=== PATIENT | female | born 1940 | race Caucasian/White ===

== ENCOUNTER 2016-08-21 13:40 | Emergency (ER) | payer MEDICARE, MEDICAID ==
[~2016-08-21 13:40] MED LIST: ALTACE2.5 MG PO; ANBESOL TP; CALTRATE-600 W600 MG PO; CLARITIN DPS10 MG PO; COLACE-DPS100 MG PO; DESYREL DPS100 MG PO; DESYREL DPS150 MG PO; DULCOLAX-DPS10 MG PR; DUONEB DPS3 ML IH; EFFEXOR XR DPS150 MG PO; EXELON PATCH9.5 MG TP; FEOSOL-DPS325 MG PO; HYDROCODONE 5MG/5 MG PO; IMODIUM DPS2 MG PO; KLONOPIN DPS0.5 MG PO; KLOR-CON M2020 ME1 PO; LIPITOR DPS40 MG PO; MAALOX DPS30 ML PO; MAXZIDE-25 DPS1 TAB PO; MELATONIN3 MG PO; MILK OF MAGNESI10 ML PO; MIRAPEX DPS0.25 MG PO; NITROSTAT0.4 MG SL; NIZORAL DPS30 GM TP; PREVACID30 MG PO; PROCTOSOL-HC28.35 GM PR; SENOKOT S1 TAB PO; SYNTHROID DPS0.05 MG PO; THERA1 EACH PO; TOPAMAX DPS25 MG PO; TRIMPEX DPS100 MG PO; TYLENOL DPS325 MG PO; TYLENOL EXTRA500 M1 PO; VESICARE5 MG PO; VICKS VAPORUB O50 GM TP; XANAX DPS0.25 MG PO; XANAX0.25 MG PO; ZANTAC DPS150 MG PO; ZETIA10 MG PO; ZOLOFT DPS100 MG PO; ZOVIRAX5 GM TP
--- NOTE | 2016-09-08 15:00 | ER ---
ADMIT: 08/21/2016 RM/LOC: ER [facility] MR#: [id number] [address] [id number] [place] [address] Emergency Room Report SEX: F AGE: 75 : 1940 DATE: 08/21/2016 ADDENDUM: This patient comes to the ER from the long term because today she had a possible fall. It was not witnessed, however, she was found on the floor in her room. When questioned, she states she slipped, but she denies any injury. They were concerned because initially she had maybe a little bit of pain in her hip. When she gets to the ER, she has no pain. We got her up, she walked around without any difficulty. Denied any pain. She was alert and oriented. She requested to be fed ice cream, which she did eat without any difficulty. Her urinalysis was normal. DIAGNOSIS: Fall. She was returned to the long term. Continue with all regular orders and medications. HILARY Scruggs / Jose Raul Sun MD / paulie JOB #: [id number] CC: Jose Raul Sun MD, Attending Physician Efrain Miller MD, Family Physician
== END 2016-08-21 15:40 | disposition home or self-care (01) ==
LOC: ER 13:40
DX: Z04.3 Encounter for examination and observation following other accident (principal); I11.9 Hypertensive heart disease without heart failure; I25.10 Atherosclerotic heart disease of native coronary artery without angina pectoris; D64.9 Anemia, unspecified; E03.9 Hypothyroidism, unspecified; W19.XXXA Unspecified fall, initial encounter; Y92.129 Unspecified place in nursing home as the place of occurrence of the external cause